=== PATIENT | female | born 1980 | race Caucasian/White ===

== ENCOUNTER 2020-05-18 17:25 | Emergency (ER) | payer OTHER ==
[~2020-05-18] VITALS: Ht 160 cm; Wt 107.0 kg
[2020-05-18 18:00] VITALS: BP 157/92
--- NOTE | 2020-05-18 18:43 | RAD ---
Exam: Left finger 3 views INDICATION: Door shut on fingers TECHNIQUE: Frontal view of the left hand with oblique and lateral views of the second and third digit . Comparisons: None FINDINGS: Bone mineralization is normal. No acute or healed fractures. Soft tissues are unremarkable. Joint spa brett are well-maintained. IMPRESSION: No acute osseous abnormality. Electronically signed by: Joanne Ramirez MD (05/18/2020 6:40 PM) HEATHER
--- NOTE | 2020-05-18 19:32 | PHYS DOC ---
Past History Past Medical History: Hypertension Past Surgical History: , Other Additional Past Surgical Histo: Hemmorhoidectomy Alcohol Use: None Adult General Chief Complaint Chief Complaint: HAND PROBLEM HPI HPI Patient is a 39-year-old female presents emergency department reporting that she closed her left pointer finger and middle finger into a door at approximately 1555 today. Patient denies any other physical complaints or physical injuries. Patient states she has not had a menstrual cycle in quite some time as she is on the Mirena. Takes lisinopril 5 mg daily for high blood pressure, has no known drug allergies. Review of Systems Review of Systems 14 body systems of review of systems have been reviewed. See HPI for pertinent positives and negative responses, otherwise all other systems are negative, nonpertinent or noncontributory. Physical Exam Physical Exam Constitutional: Well developed, well nourished, no acute distress, non-toxic appearance. HENT: Normocephalic, atraumatic, bilateral external ears normal, oropharynx moist, no oral exudates, nose normal. Eyes: PERRLA, EOMI, conjunctiva normal, no discharge. Neck: Normal range of motion, no tenderness, supple, no stridor. Cardiovascular:Heart rate regular rhythm, no murmur Lungs & Thorax: Bilateral breath sounds clear to auscultation Abdomen: Bowel sounds normal, soft, no tenderness, no masses, no pulsatile masses. Skin: Warm, dry, no erythema, no rash. Back: No tenderness, no CVA tenderness. Extremities: No tenderness, no cyanosis, no clubbing, ROM intact, no edema. Mild bruising to left hand digits 2 and 3. Full AROM/PROM of affected digits, distal cap refill less than 2 seconds. Small 1 mm diameter abrasion on pointer finger dorsal aspect. Neurologic: Alert and oriented X 3, normal motor function, normal sensory function, no focal deficits noted. Psychologic: Affect normal, judgement normal, mood normal. Current Patient Data Vital Signs Vital Signs Date Time Temp Pulse Resp B/P (MAP) Pulse Ox O2 Delivery O2 Flow Rate FiO2 05/18/20 18:00 97.9 89 16 157/92 (113) 98 Room Air EKG EKG [] Radiology/Procedures Radiology/Procedures PATIENT: CHRISTIANO CUI I ACCOUNT: [id number] : 1980 LOCATION: ER AGE: 39 SEX: F EXAM STATUS: REG ER ORD. PHYSICIAN: MAYANK LINDA APRN REASON: DOOR SHUT ON FINGERS PROCEDURE: FINGER(S) LEFT Exam: Left finger 3 views INDICATION: Door shut on fingers TECHNIQUE: Frontal view of the left hand with oblique and lateral views of the second and third digit. Comparisons: None FINDINGS: Bone mineralization is normal. No acute or healed fractures. Soft tissues are unremarkable. Joint spaces are well-maintained. IMPRESSION: No acute osseous abnormality. Electronically signed by: Joanne Jerome MD (05/18/2020 6:40 PM) [facility] DICTATED AND SIGNED BY: JOANNE JEROME MD DATE: 05/18/201839 CC: MAYANK LINDA APRN; DOMENICO CASTREJON ~MTH0 0 Heart Score C/O Chest Pain: No Risk Factors: Risk Factors: DM, Current or recent (<one month) smoker, HTN, HLP, family history of CAD, obesity. Risk Scores: Risk Factors: DM, Current or recent (<one month) smoker, HTN, HLP, family history of CAD, obesity. Course & Med Decision Making Course & Med Decision Making Pertinent Labs and Imaging studies reviewed. (See chart for details) 31-year-old female, vital signs reviewed, presents emergency department concerning closing her door on her left hand pointer and middle finger at approximately 1555 today. Physical examination concerning for possible bony i njury. An x-ray was ordered. X-ray negative for acute bony fracture, ordered bacitracin and Band-Aid over abrasion of left pointer finger. Patient gave verbal understanding of discharge home instructions, follow-up with primary care soon, wound care instructions for abrasion, return to ER precautions and concerns, was discharged home without incident. Dragon Disclaimer Dragon Disclaimer This electronic medical record was generated, in whole or in part, using a voice recognition dictation system. Departure Departure: Impression: Primary Impression: Contusion of finger of left hand Additional Impressions: Contusion of finger Abrasion of finger of left hand Disposition: 01 DC HOME SELF CARE/HOMELESS Condition: GOOD Referrals: DOMENICO CASTREJON (PCP) Additional Instructions: X-rays of the fingers that were closed in the door were negative for acute fracture, please continue to cleanse and apply antibiotic ointment to the abrasion of your left pointer finger daily. Follow-up with your primary care physician this week for reevaluation. Use ice 30 minutes on 30 minutes off for the next 24 to 48 hours. Please return to emergency department for worsening symptoms or other concerns. EMERGENCY DEPARTMENT GENERAL DISCHARGE INSTRUCTIONS Thank you for coming to [facility] (ED) today and trusting us with you care. We trust that you had a positivie experience in our Emergency Department. If you wish to speak to the department management, you may call the director at [phone]. YOUR FOLLOW UP INSTRUCTIONS ARE FOLLOWS: 1. Do you have a private Doctor? If you do not have a private doctor, please ask for a resource list of physicians or clinics that may be able to assist you with follow up care. 2. The Emergency Physician has interpreted your x-rays. The X-Ray specialist w ill also review them. If there is a change in the findings, you will be notified in 48 hours when at all possible. 3. A lab test or culture has been done, your results will be reviewed and you will be notified if you need a change in treatment. ADDITIONAL INSTRUCTIONS AND INFORMATION: 1. Your care today has been supervised by a physician who is specially trained in emergency care. Many problems require more than one evaluation for a complete diagnosis and treatment. We recommend that you schedule your follow up appointment as recommended to ensure complete treatment of you illness or injury. If you are unable to obtain follow up care and continue to have a problem, or if your condition worsens, we recommend that you return to the ED. 2. We are not able to safely determine your condition over the phone nor are we able to give sound medical advice over the phone. For these safety reasons, if you call for medical advice we will ask you to come to the ED for further evaluation. 3. If you have any questions regarding these discharge instructions please call the ED at [phone]. SAFETY INFORMATION: In the interest of safety, wellness, and injury prevention; we encourage you to wear your sealbelt, if you smoke; quite smoking, and we encourage family to use a protective helmet for bicycling and other sporting events that present an increased risk for head injury. IF YOUR SYMPTOMS WORSEN OR NEW SYMPTOMS DEVELOP, OR YOU HAVE CONCERNS ABOUT YOUR CONDITION; OR IF YOUR CONDITION WORSENS WHILE YOU ARE WAITING FOR YOUR FOLLOW UP APPOINTMENT; EITHER CONTACT YOUR PRIMARY CARE DOCTOR, THE PHYSICIAN WHOSE NAME AND NUMBER YOU WERE GIVEN, OR RETURN TO THE ED IMMEDIATELY. Problem Qualifiers Primary Impression: Contusion of finger of left hand Encounter type: initial encounter Finger: index finger Damage to nail status: without damage Qualified Codes: S60.022A - Contusion of left index finger without damage to nail, initial encounter Additional Impressions: Contusion of finger Encounter type: initial encounter Finger: middle finger Damage to nail status: without damage Laterality: left Qualified Codes: S60.032A - Contusion of left middle finger without damage to nail, initial encounter Abrasion of finger of left hand Encounter type: initial encounter Qualified Codes: S60.419A - Abrasion of unspecified finger, initial encounter MAYANK LINDA APRN May 18, 2020 19:32
[2020-05-18] MEDS ORDERED: BACITRACIN ZINC TOPICAL OINT PACKET. TP ONE ×2 (19:45→19:46)
== END 2020-05-18 19:50 | disposition home or self-care (01) ==
LOC: ER 17:25
DX: S60.022A Contusion of left index finger without damage to nail, initial encounter (principal); S60.032A Contusion of left middle finger without damage to nail, initial encounter; I10 Essential (primary) hypertension; W23.0XXA Caught, crushed, jammed, or pinched between moving objects, initial encounter; Y93.89 Activity, other specified; Y92.89 Other specified places as the place of occurrence of the external cause; Y99.8 Other external cause status
CPT/HCPCS: 73140; 99283

== ENCOUNTER 2020-11-04 18:28 | Emergency (ER) | payer OTHER ==
[~2020-11-04] VITALS: Ht 160 cm; Wt 109.0 kg
[2020-11-04 19:04] VITALS: BP 154/70
--- NOTE | 2020-11-04 19:11 | PHYS DOC ---
Past History Past Medical History: Hypertension Past Surgical History: , Other Additional Past Surgical Histo: Hemmorhoidectomy Alcohol Use: None Adult General Chief Complaint Chief Complaint: LOWEREXTREMITY INJURY HPI HPI Patient is a 40-year-old female, otherwise healthy who presents with a chief complaint of bilateral knee pain and right ankle pain, 4-10, sharp in nature that happened about an hour before coming to the emergency department. States she was at work, turned to walk down the stairs and tripped down 3 stairs landing on her knees. States she is able to walk. Denies any other injuries. Review of Systems Review of Systems Review of systems otherwise unremarkable except noted in HPI Allergies Allergies Allergies Coded Allergies Type Severity Reaction Last Updated Verified No Known Drug Allergies 05/18/20 No Physical Exam Physical Exam Constitutional: Well developed, well nourished, no acute distress, non-toxic appearance. [] HENT: Normocephalic, atraumatic, bilateral external ears normal, oropharynx moist, no oral exudates, nose normal. [] Eyes:conjunctiva normal, no discharge. [] Neck: Normal range of motion, no tenderness, supple, no stridor. [] Cardiovascular:Heart rate regular rhythm, no murmur [] Lungs & Thorax: Bilateral breath sounds clear to auscultation [] Abdomen: Bowel sounds normal, soft, no tenderness, no masses, no pulsatile masses. [] Skin: Warm, dry, no erythema, no rash. [] Back: No tenderness, no CVA tenderness. [] Extremities: Mild tenderness around lateral malleolus of right ankle with mild swelling but no erythema, bruising or deformities noted. The rest of the physical exam unremarkable, neurovascular exam intact Neurologic: Alert and oriented X 3, normal motor function, normal sensory function, no focal deficits noted. [] Psychologic: Affect normal, judgement normal, mood normal. [] EKG EKG [] Radiology/Procedures Radiology/Procedures [] Heart Score C/O Chest Pain: No Risk Factors: Risk Factors: DM, Current or recent (<one month) smoker, HTN, HLP, family history of CAD, obesity. Risk Scores: Risk Factors: DM, Current or recent (<one month) smoker, HTN, HLP, family history of CAD, obesity. Course & Med Decision Making Course & Med Decision Making Patient is a 40-year-old female who presents with bilateral knee pain and right ankle pain after tripping down 3 stairs at work Vital signs notable for hypertension. Physical exam noted above. Given ice pack, Tylenol and ibuprofen. Imaging with no acute osseous abnormalities. Discussed all findings with patient. Discussed pain management at home. Advised to follow-up in the morning with primary care physician. Gave return precautions to the ED. Patient grateful, verbalized understanding agree with plan of discharge. Dragon Disclaimer Dragon Disclaimer This electronic medical record was generated, in whole or in part, using a voice recognition dictation system. Departure Departure: Impression: Primary Impression: Fall Additional Impressions: Bilateral knee pain Right ankle pain Disposition: HOME / SELF CARE / HOMELESS Condition: GOOD Referrals: DOMENICO CASTREJON (PCP) Patient Instructions: RICE - Routine Care for Injuries Additional Instructions: Thank you for coming into the emergency department tonight and allowing us to take care of you. Please read the attached information carefully go back over things we discussed. You can continue to use Tylenol, ibuprofen and ice as needed at home for pain control. Please follow-up in the morning with your primary care physician to update on ED visit. Please come back to the ED with new or concerning symptoms as discussed Problem Qualifiers LOS RAMIRES MD Nov 04, 2020 19:11
[2020-11-04] MEDS ORDERED: ACETAMINOPHEN 500 MG TABLET PO ONE (19:15)
[2020-11-04] MEDS ORDERED: IBUPROFEN 600 MG TABLET. PO ONE (19:15)
--- NOTE | 2020-11-04 19:45 | RAD ---
Exam: Bilateral knees 4 views INDICATION: Fall TECHNIQUE: Frontal, lateral, oblique and sunrise views of the left and right knee Comparisons: None FINDINGS: Right knee: Bone mineralization is normal. No acute or healed fractures. Soft tissues are unremarkable. Joint spa brett are well-maintained. Left knee: Bone mineralization is normal. No acute or healed fractures. Soft tissues are unremarkable. Joint spa brett are well-maintained. IMPRESSION: No acute osseous abnormality of the right or left knee. Electronically signed by: Joanne Ramirez MD (11/04/2020 7:43 PM) KAYLAN
--- NOTE | 2020-11-04 19:46 | RAD ---
Three-view right ankle HISTORY: Status post fall AP lateral oblique views The visualized osseous structures are grossly intact. The tibiotalar relationship is normal. IMPRESSION: Negative examination. Electronically signed by: Missael Patterson III, MD (11/04/2020 7:44 PM) [facility]
== END 2020-11-04 20:00 | disposition home or self-care (01) ==
LOC: ER 18:28
DX: M25.571 Pain in right ankle and joints of right foot (principal); M25.562 Pain in left knee; M25.561 Pain in right knee; I10 Essential (primary) hypertension
CPT/HCPCS: 73610; 73564-50; 99284-25